=== PATIENT | female | born 1970 | race Caucasian/White ===

== ENCOUNTER 2018-08-20 11:30 | Observation (INO) ==
[2018-08-20 12:01] LABS: Baso # (Auto) 0.1 th/mm3 (0.0-0.2); Baso % (Auto) 0.8 % (0.0-2.0); Eos # (Auto) 0.2 th/mm3 (0.0-0.4); Eos % (Auto) 2.8 % (0.0-4.0); Hematocrit 39.1 % (35.0-46.0); Hemoglobin 13.6 gm/dL (11.6-15.3); Lymph % (Auto) 30.4 % (9.0-44.0); Mean Corpuscular HGB Conc 34.9 % (32.0-36.0); Mean Corpuscular Hemoglobin 30.2 pg (27.0-34.0); Mean Corpuscular Volume 86.6 fL (80.0-100.0); Mean Platelet Volume 8.2 fL (7.0-11.0); Mono # (Auto) 0.4 th/mm3 (0.0-0.9); Neut # (Auto) 3.9 th/mm3 (1.8-7.7); Platelet Count 236 th/mm3 (150-450); Red Blood Count 4.52 mil/mm3 (4.00-5.30); Red Cell Distribution Width 14.9 % (11.6-17.2); White Blood Count 6.5 th/mm3 (4.0-11.0)
[2018-08-20 12:19] LABS: Anion Gap 5 meq/L (5-15); Aspartate Aminotransferase 13 U/L (15-37); Blood Urea Nitrogen 9 mg/dL (7-18); Calcium 8.8 mg/dL (8.5-10.1); Carbon Dioxide 28.6 meq/L (21.0-32.0); Chloride 107 meq/L (98-107); Glomerular Filtration Rate 79 mL/min (>89); Glucose,Random 108 mg/dL (74-106); Potassium 3.6 meq/L (3.5-5.1); Sodium 141 meq/L (136-145)
[2018-08-20 12:29] LABS: Alanine Aminotransferase 29 U/L (10-53); Alkaline Phosphatase 76 U/L (45-117); Total Protein 7.4 g/dL (6.4-8.2)
--- NOTE | 2018-08-20 12:56 | XR ---
EXAM DATE: 08/20/2018 12:11 PM EDT AGE/SEX: 47 years / Female INDICATIONS: . Patient complains of left side chest pain and shortness of breath for two days. CLINICAL DATA: This is the patient's initial encounter. Patient reports that signs and symptoms have been present for 2 days and indicates a pain score of 7/10. MEDICAL/SURGICAL HISTORY: None. None. COMPARISON: No prior exams available for comparison. FINDINGS: PA and lateral views of the chest demonstrate the lungs to be symmetrically aerated without evidence of mass, infiltrate or effusion. The cardiomediastinal contours are unremarkable. Osseous structures are intact. CONCLUSION: No acute cardiopulmonary disease. Electronically signed by: Sudheer Mccann MD 08/20/2018 12:54 PM EDT
[2018-08-20] MEDS ORDERED: Aspirin 325 MG Tablet PO ONE (14:20)
[2018-08-20 14:51] LABS: Magnesium 2.1 mg/dL (1.5-2.5)
[2018-08-20 14:56] LABS: Activated Partial Thrombo Time 27.2 sec (24.3-30.1)
--- NOTE | 2018-08-20 14:58 | ED ---
HPI General Chief Complaint: Chest Pain Stated Complaint: Chest Pain Complaint Time Seen by Provider: 08/20/18 13:50 Source: patient Mode of arrival: ambulatory Limitations: no limitations History of Present Illness HPI narrative: 47 y/o female states she has been having intermittent chest pain episodes for the past month but over the past day it became more consistent. She states she has not seen a physician for this. She is not taking an aspirin yet. She denies prior cardiac workup. She denies other associated symptoms. Quality is pressure. Severity is moderate. She denies specific modifying factors. MD complaint: Reports chest pain Onset (ago): week(s) Duration: intermittent Pain radiation: Reports none Treatments prior to arrival chest pain: Reports none Related Data Home Medications Medication Instructions Recorded Confirmed duloxetine 60 mg PO BID 08/20/18 08/20/18 gabapentin 300 mg PO HS 08/20/18 08/20/18 methylphenidate HCl [Concerta] 54 mg PO QAM 08/20/18 08/20/18 valacyclovir 1,000 mg PO DAILY 08/20/18 08/20/18 Allergies Allergy/AdvReac Type Severity Reaction Status Date / Time No Known Allergies Allergy Verified 08/20/18 13:52 Review of Systems ROS: all other systems reviewed are negative [facility] Medical History Medical History Anxiety (Acute) delivery delivered (Acute) Cyst, ovarian (Acute) Depression (Acute) Social History Social History Substance History: No History of Abuse Second Hand Smoke Exposure: No Smoking Status: Never smoker How Often Do You Have a Drink Containing Alcohol: Never Recent Travel in [facility] within the Last 8 Weeks: No Recent Out of Country Travel within the Last 8 Weeks: No Immunization History Tetanus Immunization: >5 Years Exam Narrative Exam Narrative: GENERAL: 47 y/o female in no apparent distress SKIN: Focused skin assessment warm/dry. HEAD: Atraumatic. Normocephalic. EYES: Pupils equal and round. No scleral icterus. No injection or drainage. ENT: No nasal bleeding or discharge. Mucous membranes pink and moist. NECK: Trachea midline. No JVD. CARDIOVASCULAR: Regular rate and rhythm. No murmur appreciated. RESPIRATORY: No accessory muscle use. Clear to auscultation. Breath sounds equal bilaterally. GASTROINTESTINAL: Abdomen soft, non-tender, nondistended. MUSCULOSKELETAL: No obvious deformities. No clubbing. No cyanosis. No edema. NEUROLOGICAL: Awake and alert. Motor grossly within normal limits. Normal speech. PSYCHIATRIC: Appropriate mood and affect; insight and judgment normal. Course Initial Documented Vital Signs Temperature 97.9 F 08/20/18 11:34 Pulse Rate 98 H 08/20/18 11:34 Respiratory Rate 20 08/20/18 11:34 Blood Pressure 151/79 H 08/20/18 11:34 Pulse Oximetry 98 08/20/18 11:34 Last Documented Vital Signs Temperature 97.9 F 08/20/18 11:34 Pulse Rate 88 08/20/18 13:55 Respiratory Rate 22 08/20/18 13:55 Blood Pressure 134/66 08/20/18 13:55 Pulse Oximetry 100 08/20/18 13:55 Medical Decision Making MDM Narrative Medical decision making narrative: Will check blood work, after reviewing protocol ordered in triage and then placed in the chest pain center which patient agrees to Medical Screen Exam Complete: Yes Emergency Medical Condition: Yes Differential Diagnosis Differential Diagnosis: PE, musculoskeletal, cardiac, gastritis Lab Data Lab results reviewed: Yes I reviewed the patient's lab results. Result diagrams: 08/20/18 11:40 08/20/18 11:40 Lab Results 08/20/18 08/20/18 08/20/18 Range/Units 11:40 11:40 11:40 WBC 6.5 (4.0-11.0) th/mm3 RBC 4.52 (4.00-5.30) mil/mm3 Hgb 13.6 (11.6-15.3) gm/dL Hct 39.1 (35.0-46.0) % MCV 86.6 (80.0-100.0) fL MCH 30.2 (27.0-34.0) pg MCHC 34.9 (32.0-36.0) % RDW 14.9 (11.6-17.2) % Plt Count 236 (150-450) th/mm3 MPV 8.2 (7.0-11.0) fL Prelim Diff (Auto) Slide review pending Neut % (Auto) 60.0 (16.0-70.0) % Lymph % (Auto) 30.4 (9.0-44.0) % [place] % (Auto) 6.0 (0.0-8.0) % Eos % (Auto) 2.8 (0.0-4.0) % Baso % (Auto) 0.8 (0.0-2.0) % Neut # (Auto) 3.9 (1.8-7.7) th/mm3 Lymph # (Auto) 2.0 (1.0-4.8) th/mm3 [place] # (Auto) 0.4 (0.0-0.9) th/mm3 Eos # (Auto) 0.2 (0.0-0.4) th/mm3 Baso # (Auto) 0.1 (0.0-0.2) th/mm3 WBC Differential . Diff Scan Auto diff confirmed Differential Comment . PT (9.8-11.6) sec INR Ratio APTT (24.3-30.1) sec D-Dimer Quant (PE/DVT) (0.00-0.50) mg/L FEU Sodium 141 (136-145) meq/L Potassium 3.6 (3.5-5.1) meq/L Chloride 107 (98-107) meq/L Carbon Dioxide 28.6 (21.0-32.0) meq/L Anion Gap 5 (5-15) meq/L BUN 9 (7-18) mg/dL Creatinine 0.79 (0.50-1.00) mg/dL Estimated GFR 79 L (>89) mL/min Random Glucose 108 H (74-106) mg/dL Calcium 8.8 (8.5-10.1) mg/dL Magnesium 2.1 (1.5-2.5) mg/dL Total Bilirubin 0.6 (0.2-1.0) mg/dL AST 13 L (15-37) U/L ALT 29 (10-53) U/L Alkaline Phosphatase 76 (45-117) U/L Total Creatine Kinase 69 (26-192) U/L Troponin I Less than 0.02 L (0.02-0.05) ng/mL Total Protein 7.4 (6.4-8.2) g/dL Albumin 4.0 (3.4-5.0) g/dL 08/20/18 08/20/18 Range/Units 11:40 14:26 WBC (4.0-11.0) th/mm3 RBC (4.00-5.30) mil/mm3 Hgb (11.6-15.3) gm/dL Hct (35.0-46.0) % MCV (80.0-100.0) fL MCH (27.0-34.0) pg MCHC (32.0-36.0) % RDW (11.6-17.2) % Plt Count (150-450) th/mm3 MPV (7.0-11.0) fL Prelim Diff (Auto) Neut % (Auto) (16.0-70.0) % Lymph % (Auto) (9.0-44.0) % [place] % (Auto) (0.0-8.0) % Eos % (Auto) (0.0-4.0) % Baso % (Auto) (0.0-2.0) % Neut # (Auto) (1.8-7.7) th/mm3 Lymph # (Auto) (1.0-4.8) th/mm3 [place] # (Auto) (0.0-0.9) th/mm3 Eos # (Auto) (0.0-0.4) th/mm3 Baso # (Auto) (0.0-0.2) th/mm3 WBC Differential Diff Scan Differential Comment PT 10.0 (9.8-11.6) sec INR 1.0 Ratio APTT 27.2 (24.3-30.1) sec D-Dimer Quant (PE/DVT) 0.26 (0.00-0.50) mg/L FEU Sodium (136-145) meq/L Potassium (3.5-5.1) meq/L Chloride (98-107) meq/L Carbon Dioxide (21.0-32.0) meq/L Anion Gap (5-15) meq/L BUN (7-18) mg/dL Creatinine (0.50-1.00) mg/dL Estimated GFR (>89) mL/min Random Glucose (74-106) mg/dL Calcium (8.5-10.1) mg/dL Magnesium Cancelled (1.5-2.5) mg/dL Total Bilirubin (0.2-1.0) mg/dL AST (15-37) U/L ALT (10-53) U/L Alkaline Phosphatase (45-117) U/L Total Creatine Kinase (26-192) U/L Troponin I (0.02-0.05) ng/mL Total Protein (6.4-8.2) g/dL Albumin (3.4-5.0) g/dL Imaging Data Attestation: I personally reviewed and interpreted this imaging study as follows : Radiologist's impression: Chest X-Ray 08/20/18 11:39 CONCLUSION: No acute cardiopulmonary disease. Discharge Plan Discharge Disposition Patient Disposition: 30 Still Patient Discharge Details Diagnosis: Chest pain Physicians Team ED Provider: Annmarie Hurt Primary Care Provider: Primary Care Daysi Cordova Rxs /Orders / Referrals /Forms Prescriptions: No Action methylphenidate HCl [Concerta] 54 mg Tablet Extended Release 24hr 54 mg PO QAM RF: 0 gabapentin 300 mg Capsule 300 mg PO HS RF: 0 duloxetine 60 mg Capsule,Delayed Release(Dr/Ec) 60 mg PO BID RF: 0 valacyclovir 1 gram Tablet 1,000 mg PO DAILY RF: 0 Discharge Instructions Patient Printed Instructions: Chest Pain (ED) Discharge Interventions Interventions: Vital Signs Last Done: 08/20/18 13:55 Status ED Status: Admitted Observation Patient
[2018-08-20 15:00] LABS: D-Dimer 0.26 mg/L FEU (0.00-0.50)
[2018-08-20] MEDS ORDERED: Acetaminophen 500 MG Tablet PO PRN (15:14)
--- NOTE | 2018-08-20 15:55 | P.HPCA ---
History of Present Illness Primary Care Physician: No Primary Care Physician-recently changed insurance Chief Complaint: Chest pain History of Present Illness: 47 year old female with history of depression presents to ER for further evaluation of chest pain. Onset x1 month, occurring intermittently for a few hours often resolving for days at a time. Monday morning awaken with similar discomfort however persisted all day and today therefore came to ER for further evaluation. Location left anterior chest. Characterized as sharp, steady discomfort. Moderate in severity, 7/10. Intermittent radiation to midback. Duration constant. Associated symptoms include dizziness and shortness of breath. Relates dyspnea due to pain with deep breathing. No associated symptoms of nausea, vomiting, or diaphoresis. No precipitating or relieving factors. Current pain level 3/10. Denies similar pain in the past. No recent illness, cough, injury, or fever. No history of PE or DVT. Family history noncontributory for early onset cardiovascular disease. Past cardiac testing None Social history No known CAD, hypertension, hyperlipidemia, or diabetes. Lifelong nonsmoker. Denies alcohol use or recreational drug use. . 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 Endorses somewhat of a sedentary lifestyle. Family history Noncontributory for early onset cardiovascular disease. - Diagnosis (1) Atypical chest pain (2) History of depression Review of Systems All other systems reviewed negative except as stated in [facility] - History History Provided By: Patient - Medical History Medical History: Medical History (Last Reviewed 08/20/18 @ 15:49 by SARINA Dumont) Anxiety delivery delivered Cyst, ovarian Depression - Surgical History Surgical History: Surgical History (Last Updated 08/20/18 @ 15:50 by SARINA Dumont) History of hysterectomy for benign disease - Social History I have reviewed the patient's Social History: Yes - Tobacco History Second Hand Smoke Exposure: No Tobacco Use In Past 30 Days: No Smoking Status: Never smoker - Alcohol History How Often Do You Have a Drink Containing Alcohol: Never - Substance Use History Substance History: No History of Abuse - Travel History History of Recent Travel: Yes (flew to [place] for "long weekend" 3 weeks ago) Recent Travel in the [facility] Within the Last 8 Weeks: No Recent Travel Out of the Country Within the Last 8 Weeks: No - Immunization History Tetanus Immunization: >5 Years Medications and Allergies Active Medications: Active Medications Acetaminophen (Tylenol) 500 mg PO Q4H PRN PRN Reason: HEADACHE Ondansetron HCl (Zofran Inj) 4 mg IV.PUSH Q6H PRN PRN Reason: NAUSEA Sodium Chloride (Ns Flush) 2 ml IV.FLUSH BID ALIE Sodium Chloride (Ns Flush) 2 ml IV.FLUSH PRN PRN PRN Reason: FLUSH AFTER USING IV ACCESS Allergies Allergy/AdvReac Type Severity Reaction Status Date / Time No Known Allergies Allergy Verified 08/20/18 13:52 Home Medications Medication Instructions Recorded Confirmed Type duloxetine 60 mg PO BID 08/20/18 08/20/18 History gabapentin 300 mg PO HS 08/20/18 08/20/18 History methylphenidate HCl [Concerta] 54 mg PO QAM 08/20/18 08/20/18 History valacyclovir 1,000 mg PO DAILY 08/20/18 08/20/18 History Exam Vital signs: Vital Signs 08/20/18 11:34 08/20/18 13:44 08/20/18 13:55 Temperature 97.9 F Pulse Rate 98 H 84 88 Respiratory Rate 20 20 22 Blood Pressure 151/79 H 143/79 H 134/66 Pulse Oximetry 98 100 100 Intake & Output 08/19/18 08/20/18 08/20/18 18:59 06:59 18:59 Weight 99.79 kg Narrative: GENERAL: Alert WN, WD, NAD, pleasant, obese female HEAD: NC, AT EYES: Sclera clear, conjunctiva without injection, pupils equal and round ENT: Mucous membranes pink and moist CV: RRR, without murmur, rub, gallop, no JVD, S1-S2. Left anterior chest discomfort with palpation. RESP: Clear lungs throughout bilateral, no crackles, wheeze, rhonchi, symmetrical chest rise, nonlabored, able to speak in full sentences ABD: Soft, NT, ND, no masses, positive bowel tones EXT: Pulses +2x4, no dependent edema MS: Normal tone x4 extremities, no obvious deformities, full range of motion NEURO: CN II through CN XII grossly intact, motor strength 5/5 PSYCH: A+O x3, pleasant affect, appropriate speech, mood, insight and judgment SKIN: Normal turgor, normal texture, no lesions, no rashes, brisk cap refill, even hair distribution, slight discoloration right foot Results 08/20/18 11:40 08/20/18 11:40 Cardiac Enzymes 08/20/18 Range/Units 11:40 AST 13 L (15-37) U/L Troponin I Less than 0.02 L (0.02-0.05) ng/mL Coagulation 08/20/18 Range/Units 14:26 PT 10.0 (9.8-11.6) sec APTT 27.2 (24.3-30.1) sec CBC 08/20/18 Range/Units 11:40 WBC 6.5 (4.0-11.0) th/mm3 RBC 4.52 (4.00-5.30) mil/mm3 Hgb 13.6 (11.6-15.3) gm/dL Hct 39.1 (35.0-46.0) % Plt Count 236 (150-450) th/mm3 Neut # (Auto) 3.9 (1.8-7.7) th/mm3 Lymph # (Auto) 2.0 (1.0-4.8) th/mm3 [place] # (Auto) 0.4 (0.0-0.9) th/mm3 Eos # (Auto) 0.2 (0.0-0.4) th/mm3 Baso # (Auto) 0.1 (0.0-0.2) th/mm3 Comprehensive Metabolic Panel 08/20/18 Range/Units 11:40 Sodium 141 (136-145) meq/L Potassium 3.6 (3.5-5.1) meq/L Chloride 107 (98-107) meq/L Carbon Dioxide 28.6 (21.0-32.0) meq/L BUN 9 (7-18) mg/dL Creatinine 0.79 (0.50-1.00) mg/dL Calcium 8.8 (8.5-10.1) mg/dL AST 13 L (15-37) U/L ALT 29 (10-53) U/L Alkaline Phosphatase 76 (45-117) U/L Total Protein 7.4 (6.4-8.2) g/dL Albumin 4.0 (3.4-5.0) g/dL Intake and Output 08/20/18 08/20/18 08/20/18 06:59 14:59 22:59 Other: Weight 99.79 kg Patient Weight 08/21/18 06:59 Weight 99.79 kg - Imaging and Cardiology Imaging: Impressions Chest X-Ray 08/20/18 11:39 CONCLUSION: No acute cardiopulmonary disease. EKG interpretations - EKG EKG results cardiology: sinus rhythm, normal axis, normal QRS, normal ST/T Caprini VTE Risk Assessment Caprini VTE Risk Assessment: No/Low Risk (score <= 1) Caprini Risk Assessment Model: Point Value = 1 Point Value = 2 Point Value = 3 Point Value = 5 Age 41-60 Minor surgery BMI > 25 kg/m2 Swollen legs Varicose veins or History of unexplained or recurrent spontaneous Oral contraceptives or hormone replacement Sepsis (< 1 month) Serious lung disease, including pneumonia (< 1 month) Abnormal pulmonary function Acute myocardial infarction Congestive heart failure (< 1 month) History of inflammatory bowel disease Medical patient at bed rest Age 61-74 Arthroscopic surgery Major open surgery (> 45 min) Laparoscopic surgery (> 45 min) Malignancy Confined to bed (> 72 hours) Immobilizing plaster cast Central venous access Age >= 75 History of VTE Family history of VTE Factor V Leiden Prothrombin [id number] Lupus anticoagulant Anticardiolipin antibodies Elevated serum homocysteine Heparin-induced thrombocytopenia Other congenital or acquired thrombophilia Stroke (< 1 month) Elective arthroplasty Hip, pelvis, or leg fracture Acute spinal cord injury (< 1 month) Prophylaxis Regimen: Total Risk Factor Score Risk Level Prophylaxis Regimen 0-1 Low Early ambulation 2 Moderate Order ONE of the following: *Sequential Compression Device (SCD) *Heparin 5000 units SQ BID 3-4 Higher Order ONE of the following medications: *Heparin 5000 units SQ TID *Enoxaparin/Lovenox 40 mg SQ daily (WT < 150 kg, CrCl > 30 mL/min) *Enoxaparin/Lovenox 30 mg SQ daily (WT < 150 kg, CrCl > 10-29 mL/min) *Enoxaparin/Lovenox 30 mg SQ BID (WT < 150 kg, CrCl > 30 mL/min) AND/OR *Sequential Compression Device (SCD) 5 or more Highest Order ONE of the following medications: *Heparin 5000 units SQ TID (Preferred with Epidurals) *Enoxaparin/Lovenox 40 mg SQ daily (WT < 150 kg, CrCl > 30 mL/min) *Enoxaparin/Lovenox 30 mg SQ daily (WT < 150 kg, CrCl > 10-29 mL/min) *Enoxaparin/Lovenox 30 mg SQ BID (WT < 150 kg, CrCl > 30 mL/min) AND *Sequential Compression Device (SCD) Assessment and Plan - Assessment (1) Atypical chest pain Code(s): R07.89 - Other chest pain Status: Acute Plan: Admitted to chest pain center. Monitor on telemetry overnight. Rule out ACS with 3 sets of EKG and cardiac enzymes. Will be seen and evaluated by Dr. Aguilar in morning. Discussed possible exercise cardiac testing if ACS ruled out and after evaluation by street sweeper operator. Reassurance provided discomfort unlikely to be cardiac related as discomfort has persisted and also reproducible. Toradol 30 mg IV x1 dose now. (2) History of depression Code(s): Z86.59 - Personal history of other mental and behavioral disorders Status: Chronic Plan: Continue home medications once updated in [facility].
[2018-08-20] MEDS ORDERED: Ketorolac Inj 30 MG/ML (IVP) Vial IV.PUSH ONE (16:15)
[2018-08-20 16:37] LABS: Creatine Kinase 61 U/L (26-192)
[2018-08-20 20:01] LABS: Creatine Kinase 56 U/L (26-192)
[2018-08-20] MEDS: Duloxetine 60 MG DR Capsule PO SCH (20:30)
[2018-08-20] MEDS ORDERED: Gabapentin 300 MG Capsule PO SCH (21:00)
[2018-08-21] MEDS: Duloxetine 60 MG DR Capsule PO SCH (08:51)
[2018-08-21] MEDS ORDERED: valACYclovir 500 MG Tab PO SCH (09:00)
--- NOTE | 2018-08-21 17:15 | TR ---
Date Performed: 08/21/2018 Time Performed: 10:01:17 DOCTOR: Mary Aguilar DRUG LIST: CLINICAL HISTORY: REASON FOR TEST: REASON FOR ENDING: OBSERVATION: CONCLUSION: DHAVAL PROTOCOL. NO CP. TEST STOPPED AFTER EXCEEDING GOAL HR SECONDARY TO SOB AND LEG FATIGUE.Maximum EZ=647 % Max HR Achieved=93.0% Maximum VB=358/78 Total Exercise Time=9:27 COMMENTS: no ischemia
--- NOTE | 2018-08-21 17:19 | ECG ---
Date Performed: 08/20/2018 Time Performed: 15:40:43 PTAGE: 47 years EKG: Sinus rhythm NORMAL ECG Since PREVIOUS TRACING , no significant change noted PREVIOUS TRACIN08/20/2018 11.45 DOCTOR: Mary Aguilar Interpretating Date/Time 08/21/2018 17:18:14
--- NOTE | 2018-08-21 17:19 | ECG ---
Date Performed: 08/20/2018 Time Performed: 18:24:58 PTAGE: 47 years EKG: Sinus rhythm NORMAL ECG Since PREVIOUS TRACING , no significant change noted PREVIOUS TRACIN08/20/2018 15.40 DOCTOR: Mary Aguilar Interpretating Date/Time 08/21/2018 17:17:26
--- NOTE | 2018-08-21 17:21 | ECG ---
Date Performed: 08/20/2018 Time Performed: 11:45:41 PTAGE: 47 years EKG: Sinus rhythm NORMAL ECG NO PREVIOUS TRACING DOCTOR: Mary Aguilar Interpretating Date/Time 08/21/2018 17:20:35
== END 2018-08-21 11:20 | disposition home or self-care (01) ==
LOC: NEDA 11:30 → NEPC 11:30 → NEPHCDU 16:13
PROVIDERS: ADMIT Internal Medicine Cardiovascular Disease; ATTEND Internal Medicine Cardiovascular Disease